=== PATIENT | female | born 2000 | race Caucasian/White ===

== ENCOUNTER 2019-10-17 22:23 | Emergency (ER) | payer SELFPAY ==
[~2019-10-17] VITALS: Ht 172.7 cm; Wt 120.5 kg
[2019-10-17 22:25] VITALS: Ht 172.7 cm; Wt 120.5 kg
[2019-10-17 23:05] LABS: BASOPHILS 0.4 % (0-2); EOSINOPHILS 3.7 % (0-7); HEMATOCRIT 35.6 % (36.0-48.0); HEMOGLOBIN 11.2 g/dL (12-16); IMMATURE GRANULOCYTES 0.3 % (0-5); LYMPHOCYTES 25.8 % (15-50); MCH 25.7 pg (26.0-34.0); MCHC 31.5 g/dL (31.0-37.0); MCV 81.7 fL (80.0-100.0); MEAN PLATELET VOLUME 9.1 fL (7.4-10.4); NEUTROPHILS 62.8 % (40-80); PLATELET COUNT 381 10x3/uL (130-400); RBC 4.36 10x6/uL (4.00-5.40); RDW 14.9 % (11.5-14.5); WBC 11.3 10x3/uL (4.8-10.8)
[2019-10-17 23:22] LABS: CALC OSMOLALITY 279 mosm/kg (275-300); CALCIUM 8.9 mg/dL (8.5-10.1); CARBON DIOXIDE 28.4 mmol/L (21.0-32.0); CHLORIDE - SERUM 104 mmol/L (98-107); CREATININE - SERUM 0.9 mg/dL (0.6-1.3); GLUCOSE 130 mg/dL (74-106); POTASSIUM - SERUM 3.8 mmol/L (3.5-5.1); SODIUM 140 mmol/L (136-145); UREA NITROGEN 10 mg/dL (7-18); eGFR NON AFRICAN AMERICAN 85 mL/min (90-120)
[2019-10-17 23:23] LABS: APTT 26.3 SECONDS (22.8-39.4); INR 1.07 (0.85-1.17); PROTIME 13.4 SECONDS (11.6-15.0)
[2019-10-17 23:37] LABS: ALBUMIN 3.4 g/dL (3.4-5.0); ALKALINE PHOSPHATASE 75 U/L (46-116); ALT (SGPT) 26 U/L (10-68); BILIRUBIN - TOTAL 0.19 mg/dL (0.2-1.3); CKMB 0.8 U/L (0.0-3.6); CREATINE KINASE 188 UL (21-215); MAGNESIUM - SERUM 1.8 mg/dL (1.8-2.4); PROTEIN - SERUM 7.3 g/dL (6.4-8.2); TROPONIN-I < 0.017 ng/mL (0.000-0.060)
[2019-10-18 03:08] VITALS: BP 121/79
== END 2019-10-18 00:43 | disposition home or self-care (01) ==
LOC: D.ER 22:23
PROVIDERS: Family Medicine
DX: R51 Headache (principal); R05 Cough; R07.89 Other chest pain; E11.9 Type 2 diabetes mellitus without complications